=== PATIENT | male | born 1970 | race Caucasian/White ===

== ENCOUNTER → 2018-12-19 | Outpatient (REF) ==
[~2018-12-19] MED LIST: ADVIL200 MG PO; ALEVE220 MG PO; ASPIRIN 81M81 MG/TA2 PO; LACRI-LUBE1 OI1 OD; LANTUS100 U/ML SC; NO HOME MEDICATIONS; PREDNISONE20 MG PO; SEPTRA DS 8001 TAB PO
== END ==
LOC: ZLAB.WCH 11:07
DX: Z01.89 Encounter for other specified special examinations (principal)

== ENCOUNTER → 2019-02-12 | Outpatient (REF) | LOC: ZLAB.WCH 14:52 | DX: Z01.89 Encounter for other specified special examinations (principal) ==

== ENCOUNTER 2020-07-17 21:08 | Emergency (ER) | payer MEDICAID ==
[~2020-07-17] VITALS: Ht 172.7 cm; Wt 125.0 kg
[2020-07-17 23:29] LABS: BASO # 0.1 (0.0-0.2); BASO % 0.3 % (0.0-2.0); EOS # 0.1 (0.0-0.7); EOS % 0.9 % (0-4.0); GRAN # 11.3 (1.4-6.5); GRAN % 76.4 % (42.2-75.2); HEMOGLOBIN 12.5 g/dl (13.5-18.0); LYMPH # 2.1 (1.2-3.4); MEAN CELL VOLUME 92 fl (80.0-100.0); MEAN CORPUSCULAR HEMOGLOBIN 31 pg (27.0-31.0); MEAN CORPUSCULAR HGB CONC 34 g/dl (33.0-37.0); MEAN PLATELET VOLUME 9.9 fl (7.4-10.4); MONO # 1.1 (0.1-0.6); MONO % 7.7 % (1.7-9.3); PLATELET COUNT 279 K/mm3 (130-400); REDCELL DISTRIBUTION WIDTH-CV 13.8 % (11.5-14.5)
[2020-07-17 23:30] LABS: HEMATOCRIT 36.9 % (42.0-52.0)
[2020-07-17 23:44] LABS: PROTHROMBIN TIME 11.3 SECONDS (9.7-12.8)
[2020-07-18 00:20] LABS: ALBUMIN 3.7 gm/dL (3.5-5.0); BILIRUBIN,TOTAL 0.7 mg/dL (0.0-1.0); CALCIUM 8.7 mg/dL (8.4-10.2); CREATININE, serum 1.13 (0.66-1.25); TOTAL PROTEIN 7.1 gm/dL (6.4-8.2)
[2020-07-18 01:34] LABS: COLLECTION METHOD CLEAN CATCH
[2020-07-18 01:45] LABS: MUCOUS Present /lpf; PH 5 (5-8); SQUAMOUS EPITHELIAL 0-2 /hpf; URINE APPEARANCE Hazy; URINE BACTERIA Rare /hpf; URINE BILIRUBIN Negative (NEGATIVE); URINE BLOOD 2+ (NEGATIVE); URINE COLOR Yellow; URINE GLUCOSE 3+ (NEGATIVE); URINE KETONE Trace (NEGATIVE); URINE LEUKOCYTE ESTERASE Trace (NEGATIVE); URINE NITRATE Negative (NEGATIVE); URINE PROTEIN(semi-quant) 2+ (NEGATIVE); URINE RBC 20-50 /hpf; URINE UROBILINOGEN Negative (NEGATIVE)
[2020-07-18] MEDS ORDERED: BACTRIM DS 8001 TAB PO ×2 (02:13→02:46)
[2020-07-18 02:21] LABS: POTASSIUM 6.2 mmol/L (3.4-5.0)
[2020-07-18 02:38] VITALS: BP 159/87; PULSE 89
== END 2020-07-18 02:50 | disposition home or self-care (01) ==
LOC: COL.ER 21:08
PROVIDERS: Emergency Medicine; Family Medicine
DX: N39.0 Urinary tract infection, site not specified (principal); R42 Dizziness and giddiness; E86.0 Dehydration; E11.9 Type 2 diabetes mellitus without complications; Z79.52 Long term (current) use of systemic steroids; Z79.82 Long term (current) use of aspirin; Z79.4 Long term (current) use of insulin
CPT/HCPCS: J0696

== ENCOUNTER 2021-03-20 10:47 | Emergency (ER) | payer MEDICAID ==
[~2021-03-20] VITALS: Ht 172.7 cm; Wt 104.5 kg
[~2021-03-20 10:47] MED LIST changes: +BACTRIM DS 8001 TAB PO
[2021-03-20 11:04] VITALS: TEMP 97.6
[2021-03-20] MEDS ORDERED: CEPHALEXIN500 M1 PO (13:01)
[2021-03-20 13:09] VITALS: BP 168/80; PULSE 83
[2021-04-20] MEDS ORDERED: ALEVE 220MG220 MG PO (08:55)
[2021-04-21] MEDS ORDERED: NOVOLOG FLEX100 U/ML SQ (13:51)
[2021-04-21] MEDS ORDERED: TRULICITY1.5 MG/0.5 SQ (13:52)
[2021-04-21] MEDS ORDERED: PLAVIX 75MG TAB75 MG PO (13:52)
[2021-04-21] MEDS ORDERED: PRINIVIL10 MG PO (13:54)
[2021-04-21] MEDS ORDERED: NEURONTIN600 MG/TAB PO (13:54)
[2021-04-21] MEDS ORDERED: CRESTOR 10MG10 MG PO (13:56)
[2021-04-21] MEDS ORDERED: ERGOCALCIFER50000 IU PO (13:56)
[2021-04-21] MEDS ORDERED: PRISTIQ 50 MG T50 MG PO (13:57)
[2021-04-21] MEDS ORDERED: XYZAL5 MG PO (13:59)
[2021-04-21] MEDS ORDERED: NATURAL IRON65 MG PO (14:00)
[2021-05-03] MEDS ORDERED: PROBIOTIC BLEN1 EACH PO (10:51)
[2021-05-03] MEDS ORDERED: BENTYL 10MG10 MG/CAP PO (11:21)
[2021-06-08] MEDS ORDERED: [UNRECOGNIZED DRUG - REMARK] PO (09:42)
[2021-06-11] MEDS ORDERED: VANCOCIN H125 MG/CAP PO (10:14)
== END 2021-03-20 13:10 | disposition home or self-care (01) ==
LOC: COL.ER 10:47
DX: S90.31XA Contusion of right foot, initial encounter (principal); S61.210A Laceration without foreign body of right index finger without damage to nail, initial encounter; V03.90XA Pedestrian on foot injured in collision with car, pick-up truck or van, unspecified whether traffic or nontraffic accident, initial encounter; W26.0XXA Contact with knife, initial encounter

== ENCOUNTER → 2021-04-02 | Outpatient (CLI) | payer MEDICAID ==
[~2021-04-02] MED LIST changes: +ALEVE 220MG220 MG PO; +BENTYL 10MG10 MG/CAP PO; +CEPHALEXIN500 M1 PO; +COLESTID 1GM1 G PO; +CRESTOR 10MG10 MG PO; +ERGOCALCIFER50000 IU PO; +NATURAL IRON65 MG PO; +NATURAL POTASS595 MG PO; +NEURONTIN600 MG/TAB PO; +NOVOLOG FLEX100 U/ML SQ; +PLAVIX 75MG TAB75 MG PO; +PRINIVIL10 MG PO; +PRISTIQ 50 MG T50 MG PO; +PROBIOTIC BLEN1 EACH PO; +TRULICITY1.5 MG/0.5 SQ; +VANCOCIN H125 MG/CAP PO; +VERAPAMIL120 MG/TA1 PO; +XYZAL5 MG PO; +[UNRECOGNIZED DRUG - REMARK] PO
== END ==
LOC: COL.RAD 08:00
DX: K58.0 Irritable bowel syndrome with diarrhea (principal); E11.9 Type 2 diabetes mellitus without complications
CPT/HCPCS: A9541

== ENCOUNTER 2021-04-20 12:48 | Emergency (ER) | payer MEDICAID ==
[~2021-04-20] VITALS: Ht 172.7 cm; Wt 100.0 kg
[~2021-04-20 12:48] MED LIST changes: -BENTYL 10MG10 MG/CAP PO; -COLESTID 1GM1 G PO; -CRESTOR 10MG10 MG PO; -ERGOCALCIFER50000 IU PO; -NATURAL IRON65 MG PO; -NATURAL POTASS595 MG PO; -NEURONTIN600 MG/TAB PO; -NOVOLOG FLEX100 U/ML SQ; -PLAVIX 75MG TAB75 MG PO; -PRINIVIL10 MG PO; -PRISTIQ 50 MG T50 MG PO; -PROBIOTIC BLEN1 EACH PO; -TRULICITY1.5 MG/0.5 SQ; -VANCOCIN H125 MG/CAP PO; -VERAPAMIL120 MG/TA1 PO; -XYZAL5 MG PO; -[UNRECOGNIZED DRUG - REMARK] PO
[2021-04-20 12:57] VITALS: TEMP 97.9
[2021-04-20 13:39] LABS: BASO % 0.3 % (0.0-2.0); EOS # 0.2 (0.0-0.7); EOS % 1.7 % (0-4.0); GRAN # 6.6 (1.4-6.5); HEMOGLOBIN 10.2 g/dl (13.5-18.0); LYMPH # 2.5 (1.2-3.4); LYMPH % 24.1 % (20.0-51.0); MEAN CELL VOLUME 94 fl (80.0-100.0); MEAN CORPUSCULAR HEMOGLOBIN 32 pg (27.0-31.0); MEAN CORPUSCULAR HGB CONC 34 g/dl (33.0-37.0); MEAN PLATELET VOLUME 8.8 fl (7.4-10.4); MONO # 0.9 (0.1-0.6); MONO % 8.6 % (1.7-9.3); PLATELET COUNT 232 K/mm3 (130-400); RED BLOOD COUNT 3.19 M/mm3 (4.20-5.60); REDCELL DISTRIBUTION WIDTH-CV 12.7 % (11.5-14.5)
[2021-04-20 13:46] LABS: ALANINE AMINOTRANSFERASE 12 U/L (4-49); ALBUMIN 3.7 gm/dL (3.5-5.0); ALKALINE PHOSPHATASE 101 U/L (50-136); ANION GAP 6 mmol/L (7-16); AST,SGOT 23 U/L (15-37); BILIRUBIN,TOTAL < 0.1 mg/dL (0.0-1.0); BLOOD UREA NITROGEN 41 mg/dL (9-20); CALCIUM 9.1 mg/dL (8.4-10.2); CARBON DIOXIDE 24 mmol/L (22-30); CHLORIDE 109 mmol/L (98-107); GLUCOSE 88 mg/dL (74-106); POTASSIUM 4.9 mmol/L (3.4-5.0); SODIUM 138 mmol/L (137-145); TOTAL PROTEIN 7.3 gm/dL (6.4-8.2)
[2021-04-20 13:51] LABS: ACETONE,SERUM NEGATIVE
[2021-04-20 15:51] VITALS: BP 169/92; PULSE 82
[2021-04-21] MEDS ORDERED: NOVOLOG FLEX100 U/ML SQ (13:51)
[2021-04-21] MEDS ORDERED: TRULICITY1.5 MG/0.5 SQ (13:52)
[2021-04-21] MEDS ORDERED: PLAVIX 75MG TAB75 MG PO (13:52)
[2021-04-21] MEDS ORDERED: NEURONTIN600 MG/TAB PO (13:54)
[2021-04-21] MEDS ORDERED: PRINIVIL10 MG PO (13:54)
[2021-04-21] MEDS ORDERED: CRESTOR 10MG10 MG PO (13:56)
[2021-04-21] MEDS ORDERED: ERGOCALCIFER50000 IU PO (13:56)
[2021-04-21] MEDS ORDERED: PRISTIQ 50 MG T50 MG PO (13:57)
[2021-04-21] MEDS ORDERED: XYZAL5 MG PO (13:59)
[2021-04-21] MEDS ORDERED: NATURAL IRON65 MG PO (14:00)
[2021-05-03] MEDS ORDERED: PROBIOTIC BLEN1 EACH PO (10:51)
[2021-05-03] MEDS ORDERED: BENTYL 10MG10 MG/CAP PO (11:21)
[2021-06-08] MEDS ORDERED: [UNRECOGNIZED DRUG - REMARK] PO (09:42)
[2021-06-11] MEDS ORDERED: VANCOCIN H125 MG/CAP PO (10:14)
== END 2021-04-20 16:15 | disposition home or self-care (01) ==
LOC: COL.ER 12:48
PROVIDERS: Nurse Practitioner
DX: N17.9 Acute kidney failure, unspecified (principal); S90.31XA Contusion of right foot, initial encounter; E11.65 Type 2 diabetes mellitus with hyperglycemia; N28.9 Disorder of kidney and ureter, unspecified; E87.5 Hyperkalemia; Z89.512 Acquired absence of left leg below knee; Z79.4 Long term (current) use of insulin; X58.XXXA Exposure to other specified factors, initial encounter
CPT/HCPCS: J7030

== ENCOUNTER → 2021-05-31 | Outpatient (CLI) | payer MEDICAID ==
[~2021-05-31] MED LIST changes: +BENTYL 10MG10 MG/CAP PO; +COLESTID 1GM1 G PO; +CRESTOR 10MG10 MG PO; +ERGOCALCIFER50000 IU PO; +NATURAL IRON65 MG PO; +NATURAL POTASS595 MG PO; +NEURONTIN600 MG/TAB PO; +NOVOLOG FLEX100 U/ML SQ; +PLAVIX 75MG TAB75 MG PO; +PRINIVIL10 MG PO; +PRISTIQ 50 MG T50 MG PO; +PROBIOTIC BLEN1 EACH PO; +TRULICITY1.5 MG/0.5 SQ; +VANCOCIN H125 MG/CAP PO; +VERAPAMIL120 MG/TA1 PO; +XYZAL5 MG PO; +[UNRECOGNIZED DRUG - REMARK] PO
== END ==
LOC: ZCOL.LAB 11:14
DX: E13.621 Other specified diabetes mellitus with foot ulcer (principal)

== ENCOUNTER 2021-06-14 09:30 | Outpatient (RCR) | payer MEDICAID ==
[2021-04-20 08:46] LABS: BASO % 0.3 % (0.0-2.0); EOS # 0.2 (0.0-0.7); EOS % 2.3 % (0-4.0); GRAN # 5.4 (1.4-6.5); GRAN % 62.2 % (42.2-75.2); LYMPH # 2.3 (1.2-3.4); LYMPH % 27.1 % (20.0-51.0); MEAN CELL VOLUME 93 fl (80.0-100.0); MEAN CORPUSCULAR HGB CONC 34 g/dl (33.0-37.0); MEAN PLATELET VOLUME 8.8 fl (7.4-10.4); MONO # 0.7 (0.1-0.6); MONO % 7.8 % (1.7-9.3); PLATELET COUNT 223 K/mm3 (130-400); RED BLOOD COUNT 3.02 M/mm3 (4.20-5.60); REDCELL DISTRIBUTION WIDTH-CV 12.8 % (11.5-14.5)
[2021-04-20 08:47] LABS: HEMATOCRIT 28.2 % (42.0-52.0); HEMOGLOBIN 9.5 g/dl (13.5-18.0); MEAN CORPUSCULAR HEMOGLOBIN 31 pg (27.0-31.0)
[2021-04-20 09:00] LABS: ALBUMIN 3.3 gm/dL (3.5-5.0); BILIRUBIN,TOTAL 0.1 mg/dL (0.0-1.0); C-REACTIVE PROTEIN 2.8 mg/dL (0.0-0.9); CALCIUM 8.3 mg/dL (8.4-10.2); CREATININE, serum 1.66 (0.66-1.25); POTASSIUM 5.4 mmol/L (3.4-5.0); TOTAL PROTEIN 6.5 gm/dL (6.4-8.2)
[2021-04-20 09:20] VITALS: BP 169/95; PULSE 91; TEMP 97.8
[2021-04-20 09:21] LABS: ERYTHROCYTE SEDIMENTATION RATE 113 mm/hr (0-15)
--- NOTE | 2021-04-21 10:39 | NUR ---
Pt has been a no-show so far today, i did call and leave 3 voicemail messages. I advised pt to go to ER is possible today to receive his antibiotics, and to plan on arriving at 0830 tommnrow for same. I spoke with plaster pattern caster to advise her of pt's possible arrival today. I also called Jenae Olmos, to advise her the pt was a no-show. She advised that if pt does not come today and was also a no-show tommorow, that we should call for a welfare check on him.
[2021-04-21 14:11] VITALS: BP 176/82; PULSE 91; TEMP 98.1
[2021-04-22 08:59] VITALS: BP 168/82; PULSE 81; TEMP 98.5
[2021-04-23 09:04] VITALS: BP 163/86; PULSE 84; TEMP 98.2
[2021-04-24 08:38] VITALS: BP 161/91; PULSE 91; TEMP 98.2
[2021-04-24 09:26] LABS: BASO % 0.4 % (0.0-2.0); EOS # 0.7 (0.0-0.7); EOS % 7.2 % (0-4.0); GRAN # 6.2 (1.4-6.5); HEMOGLOBIN 10.1 g/dl (13.5-18.0); LYMPH # 2.4 (1.2-3.4); LYMPH % 23.9 % (20.0-51.0); MEAN CELL VOLUME 95 fl (80.0-100.0); MEAN CORPUSCULAR HEMOGLOBIN 33 pg (27.0-31.0); MEAN CORPUSCULAR HGB CONC 34 g/dl (33.0-37.0); MONO # 0.7 (0.1-0.6); MONO % 7.1 % (1.7-9.3); PLATELET COUNT 258 K/mm3 (130-400); RED BLOOD COUNT 3.11 M/mm3 (4.20-5.60); REDCELL DISTRIBUTION WIDTH-CV 12.9 % (11.5-14.5)
[2021-04-24 09:36] LABS: HEMATOCRIT 29.5 % (42.0-52.0)
[2021-04-24 09:39] LABS: ALBUMIN 3.4 gm/dL (3.5-5.0); BILIRUBIN,TOTAL 0.1 mg/dL (0.0-1.0); C-REACTIVE PROTEIN 2.4 mg/dL (0.0-0.9); CALCIUM 8.7 mg/dL (8.4-10.2); CREATININE, serum 1.2 (0.66-1.25); POTASSIUM 5.1 mmol/L (3.4-5.0); TOTAL PROTEIN 6.9 gm/dL (6.4-8.2)
[2021-04-24 09:58] LABS: ERYTHROCYTE SEDIMENTATION RATE > 140 mm/hr (0-15)
[2021-04-26 09:27] VITALS: BP 153/95; PULSE 81; TEMP 98.4
[2021-04-27 10:13] VITALS: BP 161/92; PULSE 91; TEMP 98
[2021-04-28 08:43] VITALS: BP 169/92; PULSE 90; TEMP 99
[2021-04-29 08:34] VITALS: BP 163/75; PULSE 88; TEMP 99.2
[2021-04-30 10:59] VITALS: BP 148/88; PULSE 84; TEMP 99.2
[2021-04-30 11:14] LABS: BASO % 0.3 % (0.0-2.0); EOS # 0.2 (0.0-0.7); EOS % 1.8 % (0-4.0); GRAN # 9.4 (1.4-6.5); GRAN % 74.6 % (42.2-75.2); HEMOGLOBIN 10.1 g/dl (13.5-18.0); LYMPH # 1.9 (1.2-3.4); LYMPH % 15.4 % (20.0-51.0); MEAN CELL VOLUME 94 fl (80.0-100.0); MEAN CORPUSCULAR HEMOGLOBIN 31 pg (27.0-31.0); MEAN CORPUSCULAR HGB CONC 33 g/dl (33.0-37.0); MONO # 0.9 (0.1-0.6); MONO % 7.4 % (1.7-9.3); PLATELET COUNT 243 K/mm3 (130-400); RED BLOOD COUNT 3.26 M/mm3 (4.20-5.60); REDCELL DISTRIBUTION WIDTH-CV 12.8 % (11.5-14.5)
[2021-04-30 11:15] LABS: HEMATOCRIT 30.5 % (42.0-52.0)
[2021-04-30 11:23] LABS: ALBUMIN 3.6 gm/dL (3.5-5.0); BILIRUBIN,TOTAL 0.4 mg/dL (0.0-1.0); CALCIUM 9.1 mg/dL (8.4-10.2); CREATININE, serum 1.44 (0.66-1.25); POTASSIUM 4.9 mmol/L (3.4-5.0); TOTAL PROTEIN 7.3 gm/dL (6.4-8.2)
[2021-04-30 11:43] LABS: ERYTHROCYTE SEDIMENTATION RATE > 140 mm/hr (0-15)
[2021-04-30 11:54] LABS: C-REACTIVE PROTEIN 32.7 mg/dL (0.0-0.9)
[2021-05-01 10:38] VITALS: BP 160/100; PULSE 88; TEMP 97.4
[2021-05-02 09:58] VITALS: BP 148/86; PULSE 85; TEMP 97.9
[2021-05-03 10:45] VITALS: BP 175/95; PULSE 88; TEMP 98.1
[2021-05-04 10:29] VITALS: BP 194/101; PULSE 87; TEMP 97.3
[2021-05-05 09:46] VITALS: BP 179/97; PULSE 85; TEMP 98.1
[2021-05-06 08:20] VITALS: BP 188/102; PULSE 79; TEMP 98
[2021-05-07 09:57] VITALS: BP 172/91; PULSE 72; TEMP 98.5
[2021-05-07 10:18] LABS: BASO # 0.1 (0.0-0.2); BASO % 0.7 % (0.0-2.0); EOS # 0.5 (0.0-0.7); EOS % 4.3 % (0-4.0); GRAN # 6.4 (1.4-6.5); GRAN % 60.6 % (42.2-75.2); LYMPH # 2.9 (1.2-3.4); LYMPH % 27.3 % (20.0-51.0); MEAN CELL VOLUME 92 fl (80.0-100.0); MEAN CORPUSCULAR HGB CONC 34 g/dl (33.0-37.0); MONO # 0.7 (0.1-0.6); MONO % 6.2 % (1.7-9.3); PLATELET COUNT 321 K/mm3 (130-400); RED BLOOD COUNT 3.17 M/mm3 (4.20-5.60); REDCELL DISTRIBUTION WIDTH-CV 12.8 % (11.5-14.5)
[2021-05-07 10:19] LABS: HEMATOCRIT 29.1 % (42.0-52.0); HEMOGLOBIN 9.8 g/dl (13.5-18.0); MEAN CORPUSCULAR HEMOGLOBIN 31 pg (27.0-31.0)
[2021-05-07 10:32] LABS: ALANINE AMINOTRANSFERASE 21 U/L (4-49); ALBUMIN 3.4 gm/dL (3.5-5.0); ALKALINE PHOSPHATASE 112 U/L (50-136); ANION GAP 5 mmol/L (7-16); AST,SGOT 26 U/L (15-37); BILIRUBIN,TOTAL < 0.1 mg/dL (0.0-1.0); BLOOD UREA NITROGEN 22 mg/dL (9-20); CARBON DIOXIDE 26 mmol/L (22-30); CHLORIDE 109 mmol/L (98-107); CREATINE KINASE 38 U/L (55-170); CREATININE, serum 1.13 (0.66-1.25); GLUCOSE 199 mg/dL (74-106); POTASSIUM 5.1 mmol/L (3.4-5.0); SODIUM 139 mmol/L (137-145); TOTAL PROTEIN 7.4 gm/dL (6.4-8.2)
[2021-05-07 10:42] LABS: ERYTHROCYTE SEDIMENTATION RATE > 140 mm/hr (0-15)
[2021-05-08 10:19] VITALS: BP 166/86; PULSE 79
[2021-05-09 11:18] VITALS: BP 178/93; PULSE 81; TEMP 97.8
[2021-05-10 10:29] VITALS: BP 194/94; PULSE 81; TEMP 98.2
[2021-05-11 12:22] VITALS: BP 164/84; PULSE 81; TEMP 98.8
[2021-05-12 09:12] VITALS: BP 187/91; PULSE 90; TEMP 98.4
[2021-05-13 09:53] VITALS: BP 161/96; PULSE 80; TEMP 98.6
[2021-05-14 10:43] VITALS: BP 184/104; PULSE 95; TEMP 98.4
[2021-05-14 10:54] LABS: BASO % 0.3 % (0.0-2.0); EOS # 0.2 (0.0-0.7); EOS % 2.2 % (0-4.0); GRAN # 6.3 (1.4-6.5); GRAN % 66.9 % (42.2-75.2); LYMPH # 2.3 (1.2-3.4); LYMPH % 23.8 % (20.0-51.0); MEAN CELL VOLUME 93 fl (80.0-100.0); MEAN CORPUSCULAR HGB CONC 33 g/dl (33.0-37.0); MONO # 0.6 (0.1-0.6); MONO % 6.5 % (1.7-9.3); PLATELET COUNT 332 K/mm3 (130-400); RED BLOOD COUNT 3.13 M/mm3 (4.20-5.60); REDCELL DISTRIBUTION WIDTH-CV 13.2 % (11.5-14.5)
[2021-05-14 10:56] LABS: HEMATOCRIT 29.2 % (42.0-52.0); HEMOGLOBIN 9.7 g/dl (13.5-18.0); MEAN CORPUSCULAR HEMOGLOBIN 31 pg (27.0-31.0)
[2021-05-14 11:06] LABS: ALBUMIN 3.6 gm/dL (3.5-5.0); BILIRUBIN,TOTAL 0.2 mg/dL (0.0-1.0); CALCIUM 8.9 mg/dL (8.4-10.2); CREATININE, serum 1.16 (0.66-1.25); POTASSIUM 4.4 mmol/L (3.4-5.0); TOTAL PROTEIN 7.2 gm/dL (6.4-8.2)
[2021-05-14 11:34] LABS: ERYTHROCYTE SEDIMENTATION RATE > 140 mm/hr (0-15)
[2021-05-15 09:00] VITALS: BP 161/88; PULSE 93; TEMP 98.7
[2021-05-16 09:30] VITALS: BP 144/103; PULSE 99; TEMP 98.3
[2021-05-17 09:55] VITALS: BP 179/108; PULSE 91; TEMP 98.5
[2021-05-18 10:00] VITALS: BP 146/91; PULSE 67; TEMP 99.2
[2021-05-19 09:32] VITALS: BP 166/101; PULSE 87; TEMP 99.2
[2021-05-20 08:40] VITALS: BP 165/98; PULSE 100; TEMP 98
[2021-05-21 09:24] VITALS: BP 179/97; PULSE 100; TEMP 98.7
[2021-05-21 09:32] LABS: BASO % 0.3 % (0.0-2.0); EOS # 0.3 (0.0-0.7); EOS % 3.1 % (0-4.0); GRAN # 7.1 (1.4-6.5); GRAN % 68.7 % (42.2-75.2); LYMPH # 2.1 (1.2-3.4); LYMPH % 20.5 % (20.0-51.0); MEAN CELL VOLUME 92 fl (80.0-100.0); MEAN CORPUSCULAR HGB CONC 33 g/dl (33.0-37.0); MEAN PLATELET VOLUME 9.2 fl (7.4-10.4); MONO # 0.7 (0.1-0.6); MONO % 7.1 % (1.7-9.3); PLATELET COUNT 293 K/mm3 (130-400); REDCELL DISTRIBUTION WIDTH-CV 13.1 % (11.5-14.5)
[2021-05-21 09:33] LABS: HEMATOCRIT 30.5 % (42.0-52.0); HEMOGLOBIN 9.9 g/dl (13.5-18.0); MEAN CORPUSCULAR HEMOGLOBIN 30 pg (27.0-31.0)
[2021-05-21 09:46] LABS: ALBUMIN 3.6 gm/dL (3.5-5.0); BILIRUBIN,TOTAL 0.3 mg/dL (0.0-1.0); CALCIUM 8.9 mg/dL (8.4-10.2); CREATININE, serum 1.24 (0.66-1.25); POTASSIUM 5.2 mmol/L (3.4-5.0); TOTAL PROTEIN 7.5 gm/dL (6.4-8.2)
[2021-05-21 09:53] LABS: ERYTHROCYTE SEDIMENTATION RATE > 140 mm/hr (0-15)
[2021-05-21 10:00] LABS: C-REACTIVE PROTEIN 16.6 mg/dL (0.0-0.9)
[2021-05-22 09:43] VITALS: BP 178/131; PULSE 60; TEMP 98.6
[2021-05-23 09:45] VITALS: BP 158/91; PULSE 98; TEMP 98.2
[2021-05-24 09:51] VITALS: BP 199/94; PULSE 91; TEMP 97.4
[2021-05-25 09:01] VITALS: BP 171/104; PULSE 87; TEMP 98.6
[2021-05-26 10:16] VITALS: BP 102/69; PULSE 75; TEMP 99.1
[2021-05-27 09:54] VITALS: BP 158/85; PULSE 100; TEMP 98.3
[2021-05-28 09:39] VITALS: BP 149/92; PULSE 95; TEMP 98.2
[2021-05-28 09:48] LABS: MEAN CELL VOLUME 93 fl (80.0-100.0); MEAN CORPUSCULAR HGB CONC 32 g/dl (33.0-37.0); MEAN PLATELET VOLUME 8.9 fl (7.4-10.4); PLATELET COUNT 336 K/mm3 (130-400); RED BLOOD COUNT 3.22 M/mm3 (4.20-5.60); REDCELL DISTRIBUTION WIDTH-CV 13.2 % (11.5-14.5)
[2021-05-28 09:52] LABS: HEMATOCRIT 29.9 % (42.0-52.0); HEMOGLOBIN 9.7 g/dl (13.5-18.0); MEAN CORPUSCULAR HEMOGLOBIN 30 pg (27.0-31.0)
[2021-05-28 09:58] LABS: ALBUMIN 3.5 gm/dL (3.5-5.0); BILIRUBIN,TOTAL 0.1 mg/dL (0.0-1.0); CREATININE, serum 1.23 (0.66-1.25); POTASSIUM 4.8 mmol/L (3.4-5.0); TOTAL PROTEIN 7.5 gm/dL (6.4-8.2)
[2021-05-28 10:28] LABS: ERYTHROCYTE SEDIMENTATION RATE > 140 mm/hr (0-15)
[2021-05-29 09:16] VITALS: BP 122/83; PULSE 110; TEMP 98.8
[2021-05-30 09:49] VITALS: BP 157/92; PULSE 105; TEMP 98.8
[2021-05-31 09:21] VITALS: BP 170/94; PULSE 99; TEMP 97.9
[2021-06-01 11:30] VITALS: BP 184/97; PULSE 96; TEMP 97.9
[2021-06-02 09:41] VITALS: BP 179/81; PULSE 80; TEMP 98
[2021-06-03 11:48] LABS: CLOSTRIDIUM DIFF A/B NEG; CLOSTRIDIUM DIFF A/B INTERP NonToxigenic C.diff
[2021-06-04 09:46] VITALS: BP 161/94; PULSE 104; TEMP 98.2
[2021-06-04 09:56] LABS: BASO # 0.1 (0.0-0.2); BASO % 0.5 % (0.0-2.0); EOS # 0.2 (0.0-0.7); EOS % 2.2 % (0-4.0); GRAN # 5.3 (1.4-6.5); GRAN % 57.5 % (42.2-75.2); HEMOGLOBIN 10.1 g/dl (13.5-18.0); LYMPH # 3.2 (1.2-3.4); LYMPH % 34.7 % (20.0-51.0); MEAN CELL VOLUME 93 fl (80.0-100.0); MEAN CORPUSCULAR HEMOGLOBIN 30 pg (27.0-31.0); MEAN CORPUSCULAR HGB CONC 33 g/dl (33.0-37.0); MEAN PLATELET VOLUME 8.8 fl (7.4-10.4); MONO # 0.4 (0.1-0.6); MONO % 4.7 % (1.7-9.3); PLATELET COUNT 336 K/mm3 (130-400); RED BLOOD COUNT 3.36 M/mm3 (4.20-5.60); REDCELL DISTRIBUTION WIDTH-CV 14.1 % (11.5-14.5)
[2021-06-04 09:58] LABS: HEMATOCRIT 31.1 % (42.0-52.0)
[2021-06-04 10:14] LABS: ALANINE AMINOTRANSFERASE 19 U/L (4-49); ALBUMIN 3.5 gm/dL (3.5-5.0); ALKALINE PHOSPHATASE 106 U/L (50-136); ANION GAP 9 mmol/L (7-16); AST,SGOT 28 U/L (15-37); BILIRUBIN,TOTAL < 0.1 mg/dL (0.0-1.0); BLOOD UREA NITROGEN 26 mg/dL (9-20); C-REACTIVE PROTEIN 1.7 mg/dL (0.0-0.9); CALCIUM 8.5 mg/dL (8.4-10.2); CARBON DIOXIDE 21 mmol/L (22-30); CHLORIDE 108 mmol/L (98-107); CREATINE KINASE 54 U/L (55-170); CREATININE, serum 1.28 (0.66-1.25); GLUCOSE 241 mg/dL (74-106); POTASSIUM 4.6 mmol/L (3.4-5.0); SODIUM 138 mmol/L (137-145); TOTAL PROTEIN 7.3 gm/dL (6.4-8.2)
[2021-06-04 10:28] LABS: ERYTHROCYTE SEDIMENTATION RATE > 140 mm/hr (0-15)
[2021-06-05 09:47] VITALS: BP 185/104; PULSE 101; TEMP 98
[2021-06-06 09:44] VITALS: BP 162/82; PULSE 90; TEMP 98.6
[2021-06-07 10:07] VITALS: BP 183/90; PULSE 95; TEMP 98.3
[2021-06-08 09:23] VITALS: BP 162/83; PULSE 95; TEMP 98
[2021-06-09 09:16] VITALS: BP 177/102; PULSE 99; TEMP 97.9
[2021-06-10 08:59] VITALS: BP 183/114; PULSE 99; TEMP 97.5
[2021-06-11 10:27] VITALS: BP 175/106; PULSE 105; TEMP 98.3
[2021-06-11 11:24] LABS: BASO % 0.6 % (0.0-2.0); EOS # 0.3 (0.0-0.7); EOS % 3.6 % (0-4.0); GRAN # 3.7 (1.4-6.5); GRAN % 51.3 % (42.2-75.2); LYMPH # 2.7 (1.2-3.4); LYMPH % 37.8 % (20.0-51.0); MEAN CELL VOLUME 92 fl (80.0-100.0); MEAN CORPUSCULAR HGB CONC 33 g/dl (33.0-37.0); MEAN PLATELET VOLUME 9.5 fl (7.4-10.4); MONO # 0.5 (0.1-0.6); MONO % 6.3 % (1.7-9.3); PLATELET COUNT 249 K/mm3 (130-400); RED BLOOD COUNT 3.22 M/mm3 (4.20-5.60); REDCELL DISTRIBUTION WIDTH-CV 14.8 % (11.5-14.5)
[2021-06-11 11:25] LABS: HEMATOCRIT 29.5 % (42.0-52.0); HEMOGLOBIN 9.7 g/dl (13.5-18.0); MEAN CORPUSCULAR HEMOGLOBIN 30 pg (27.0-31.0)
[2021-06-11 11:46] LABS: ALANINE AMINOTRANSFERASE 24 U/L (4-49); ALBUMIN 3.5 gm/dL (3.5-5.0); ALKALINE PHOSPHATASE 94 U/L (50-136); ANION GAP 7 mmol/L (7-16); AST,SGOT 32 U/L (15-37); BILIRUBIN,TOTAL < 0.1 mg/dL (0.0-1.0); BLOOD UREA NITROGEN 38 mg/dL (9-20); C-REACTIVE PROTEIN 0.8 mg/dL (0.0-0.9); CALCIUM 8.6 mg/dL (8.4-10.2); CARBON DIOXIDE 21 mmol/L (22-30); CHLORIDE 111 mmol/L (98-107); CREATINE KINASE 44 U/L (55-170); CREATININE, serum 1.39 (0.66-1.25); GLUCOSE 151 mg/dL (74-106); POTASSIUM 5.7 mmol/L (3.4-5.0); SODIUM 138 mmol/L (137-145); TOTAL PROTEIN 7.1 gm/dL (6.4-8.2)
[2021-06-11 11:52] LABS: ERYTHROCYTE SEDIMENTATION RATE 70 mm/hr (0-15)
[2021-06-12 09:47] VITALS: BP 150/89; PULSE 100; TEMP 98
[2021-06-13 09:30] VITALS: BP 160/80; PULSE 98; TEMP 98
[~2021-06-14] VITALS: Ht 172.7 cm; Wt 104.6 kg
[2021-06-14 09:16] VITALS: BP 168/91; PULSE 98; TEMP 96.8
[~2021-06-14 09:30] MED LIST changes: -COLESTID 1GM1 G PO; -NATURAL POTASS595 MG PO; -VERAPAMIL120 MG/TA1 PO
--- NOTE | 2021-06-14 10:36 | NUR ---
Pt assisted out by wheelchair following PICC removal and 30 min flat time. Dressing remains in place, clean, dry and intact.
== END 2021-06-14 14:23 | disposition still patient (30) ==
LOC: EUO 09:30
PROVIDERS: Internal Medicine Infectious Disease; Nurse Practitioner
DX: E13.621 Other specified diabetes mellitus with foot ulcer (principal); Z79.899 Other long term (current) drug therapy
CPT/HCPCS: C1751; J0878; J1335

== ENCOUNTER 2021-06-26 20:24 | Inpatient (IN) | payer MEDICARE, MEDICAID ==
[~2021-06-26] VITALS: Ht 170.2 cm; Wt 108.0 kg
[2021-06-26 21:46] LABS: ALBUMIN 3.5 gm/dL (3.5-5.0); BILIRUBIN,TOTAL 0.4 mg/dL (0.0-1.0); CALCIUM 8.5 mg/dL (8.4-10.2); CREATININE, serum 1.5 (0.66-1.25); POTASSIUM 4.9 mmol/L (3.4-5.0); TOTAL PROTEIN 7.1 gm/dL (6.4-8.2)
[2021-06-26 21:57] LABS: COLLECTION METHOD CLEAN CATCH
[2021-06-26 22:02] LABS: BASO # 0.1 (0.0-0.2); BASO % 0.4 % (0.0-2.0); EOS # 0.2 (0.0-0.7); EOS % 1.3 % (0-4.0); GRAN # 10.2 (1.4-6.5); GRAN % 83.4 % (42.2-75.2); LYMPH # 1.2 (1.2-3.4); LYMPH % 9.6 % (20.0-51.0); MEAN CELL VOLUME 89 fl (80.0-100.0); MEAN CORPUSCULAR HGB CONC 34 g/dl (33.0-37.0); MEAN PLATELET VOLUME 9.7 fl (7.4-10.4); MONO # 0.6 (0.1-0.6); MONO % 4.9 % (1.7-9.3); PLATELET COUNT 242 K/mm3 (130-400); RED BLOOD COUNT 3.03 M/mm3 (4.20-5.60)
[2021-06-26 22:03] LABS: HEMATOCRIT 27.1 % (42.0-52.0); HEMOGLOBIN 9.1 g/dl (13.5-18.0); MEAN CORPUSCULAR HEMOGLOBIN 30 pg (27.0-31.0)
[2021-06-26 22:05] LABS: MUCOUS Present /lpf; PH 5 (5-8); SQUAMOUS EPITHELIAL 0-2 /hpf; URINE APPEARANCE Clear; URINE BACTERIA Rare /hpf; URINE BILIRUBIN Negative (NEGATIVE); URINE BLOOD 2+ (NEGATIVE); URINE COLOR Yellow; URINE GLUCOSE 3+ (NEGATIVE); URINE KETONE Negative (NEGATIVE); URINE LEUKOCYTE ESTERASE Negative (NEGATIVE); URINE NITRATE Negative (NEGATIVE); URINE PROTEIN(semi-quant) 3+ (NEGATIVE); URINE RBC 0-2 /hpf; URINE UROBILINOGEN Negative (NEGATIVE)
[2021-06-26 22:30] LABS: ERYTHROCYTE SEDIMENTATION RATE > 140 mm/hr (0-15)
[2021-06-27] VITALS (7 sets, daily range): BP systolic 138–184; BP diastolic 70–95; PULSE 98–117; TEMP 98.7–101.9
--- NOTE | 2021-06-27 01:00 | NUR ---
Patient to medical room 304 at this time. He is alert and oriented with no complaints of pain. Oral temperature is currently 99.9. He wears 3 liters 02 and is satting 98%. COVID tests have come back negative and awaiting results of RVP. Comfort measures provided and call light in reach, will continue to monitor.
[2021-06-27] MEDS ORDERED: CEPHALEXIN500 M1 PO (02:02)
[2021-06-27] MEDS ORDERED: VANCOCIN H125 MG/CAP PO (02:02)
[2021-06-27] MEDS ORDERED: NATURAL POTASS595 MG PO (02:03)
--- NOTE | 2021-06-27 03:25 | NUR ---
Vancomycin Initial Dosing Pharmacy Note Ordering provider: Veronica Kaur DO Indication/duration: Sepsis x 7 days Relevant comorbidities: IDDM, HTN LABS: WBC = 12.2, SCr = 1.5 Recommendation: Will draw troughs and follow levels. Loading dose: 2 grams Maintenance dose: 1 gram every 12 hours Trough goal: 15-20 ug/mL
--- NOTE | 2021-06-27 09:15 | NUR ---
Shift assessment complete. Pt resting in bed. A&Ox4. Heart RRR. Lungs CTA. Wound to top of right foot. Denies needs at this time. Continuing to monitor.
[2021-06-27 09:21] LABS: BASO # 0.1 (0.0-0.2); BASO % 0.4 % (0.0-2.0); EOS % 0.3 % (0-4.0); GRAN # 11.5 (1.4-6.5); GRAN % 82.7 % (42.2-75.2); LYMPH # 1.5 (1.2-3.4); LYMPH % 10.8 % (20.0-51.0); MEAN CELL VOLUME 90 fl (80.0-100.0); MEAN CORPUSCULAR HGB CONC 33 g/dl (33.0-37.0); MEAN PLATELET VOLUME 9.8 fl (7.4-10.4); MONO # 0.8 (0.1-0.6); MONO % 5.4 % (1.7-9.3); PLATELET COUNT 268 K/mm3 (130-400); RED BLOOD COUNT 2.81 M/mm3 (4.20-5.60)
[2021-06-27 09:23] LABS: HEMATOCRIT 25.4 % (42.0-52.0); HEMOGLOBIN 8.4 g/dl (13.5-18.0); MEAN CORPUSCULAR HEMOGLOBIN 30 pg (27.0-31.0)
[2021-06-27 09:31] LABS: CALCIUM 8.3 mg/dL (8.4-10.2); CREATININE, serum 1.62 (0.66-1.25); POTASSIUM 4.9 mmol/L (3.4-5.0)
--- NOTE | 2021-06-27 16:16 | NUR ---
ARON met with the patient to discuss discharge plan. The patient lives in [place] with his fiance, Bee Merlos (ph#[phone]). He reports independence with ADLs and has a cane, walker, and wheelchair available, if needed. The patient's PCP is Dr. Narciso Trivedi and he receives his medications from [facility]. He reports no difficulties obtaining his meds. The patient does not have a DPOA-HC and he was not interested in completing one while here. He was interested in a form. ARON provided. The patient states that he is still legally and that his refuses to go through with the divorce. SW informed him how his would be his legal next of kin, even though they are seperated. The patient verbalized understanding. The patient plans to return home with his fiance upon discharge. He is currently requiring around 1.5 liters of oygen. SW to continue to monitor. *Discharge plan: home with fiance*
[2021-06-28 05:16] VITALS: BP 154/68; PULSE 94; TEMP 99.3
--- NOTE | 2021-06-28 07:30 | NUR ---
doing shift report, pt not on oxygen, o2 sat at 73%, placed on oxymask due to mouth breathing in sleep. o2 came up to 91% on 2.5L. pt appears to have sleep apnea and reports that he has been diagnosed but has been trying to go through insurance to get a cpap. pt c/o waking up in a panic feeling like he cant breathe with chest pain, but resolves when hes awake. explained correlation of symtpoms with sleep apnea.
[2021-06-28 07:51] VITALS: BP 153/70; PULSE 109; TEMP 99.3
--- NOTE | 2021-06-28 08:00 | NUR ---
medications given, insulin held at this time due to mri coming up. pt aox4, drowsy, vitals reviewed, call light within reach, at this time mri arrived to take pt down for imaging. tele removed. no other needs
--- NOTE | 2021-06-28 10:18 | NUR ---
PT PLEASANT, AOX4, ASSESSMENT PERFORMED, PT ABD FIRM AND BOWEL SOUNDS HYPOACTIVE, PT HAD BM IN AM, LOOSLEY SOFT FORMED BROWN. TYLENOL AND GABAPENTIN GIVEN FOR GENERALIZED PAIN. VANC HANGING, NO OTHER NEEDS
--- NOTE | 2021-06-28 10:48 | NUR ---
NOTIFIED DR. BROWN AND OSORIO ROWELL ABOUT NEED FOR CENTRAL LINE WITH TROUBLE DRAWING LABS AND ANTIBIOTIC INFUSIONS, ALSO NOTIFIED OF SLEEP APNEA DIAGNOSIS BUT LACK OF CPAP
[2021-06-28 11:37] VITALS: BP 165/86; PULSE 99; TEMP 98.1
[2021-06-28] MEDS ORDERED: COLESTID 1GM1 G PO (12:12)
[2021-06-28 12:59] LABS: BASO % 0.2 % (0.0-2.0); EOS % 0.1 % (0-4.0); GRAN # 11.3 (1.4-6.5); GRAN % 84.5 % (42.2-75.2); LYMPH # 1.3 (1.2-3.4); LYMPH % 9.9 % (20.0-51.0); MEAN CELL VOLUME 91 fl (80.0-100.0); MEAN CORPUSCULAR HGB CONC 33 g/dl (33.0-37.0); MEAN PLATELET VOLUME 9.8 fl (7.4-10.4); MONO # 0.6 (0.1-0.6); MONO % 4.6 % (1.7-9.3); PLATELET COUNT 298 K/mm3 (130-400); RED BLOOD COUNT 2.84 M/mm3 (4.20-5.60)
[2021-06-28 13:01] LABS: HEMATOCRIT 25.8 % (42.0-52.0); HEMOGLOBIN 8.5 g/dl (13.5-18.0); MEAN CORPUSCULAR HEMOGLOBIN 30 pg (27.0-31.0)
[2021-06-28 13:09] LABS: CALCIUM 8.7 mg/dL (8.4-10.2); CREATININE, serum 2.76 (0.66-1.25); POTASSIUM 4.3 mmol/L (3.4-5.0)
--- NOTE | 2021-06-28 17:27 | NUR ---
PT TAKEN DOWN FOR CENTRAL LINE PLACEMENT. REQUESTING MEDICATIONS FOR HEARTBURN. OBTAINED ONE TIME ORDER FOR TUMS FROM OSORIO ROWELL
--- NOTE | 2021-06-28 18:39 | NUR ---
PT RETURNED FROM CENTRAL LINE PLACEMENT. SITTING UP IN BED EATING DINNER. CALL YARBROUGH IN REACH. NO NEEDS AT THIS TIME
[2021-06-28 21:09] VITALS: BP 138/62; PULSE 98; TEMP 99.9
[2021-06-29] VITALS (7 sets, daily range): BP systolic 132–186; BP diastolic 61–95; PULSE 62–118; TEMP 98–99.8
--- NOTE | 2021-06-29 06:32 | NUR ---
Rested well this shift. Denies nausea. Short of breath at rest. O2@3L/NC. Received tramadol x1 for pain in right lower extremity. Central line flushes well with good blood return. Denies current needs. Call light in reach. Will monitor.
[2021-06-29 07:54] LABS: BASO % 0.3 % (0.0-2.0); EOS # 0.1 (0.0-0.7); EOS % 1.1 % (0-4.0); GRAN # 9.5 (1.4-6.5); GRAN % 80.3 % (42.2-75.2); LYMPH # 1.3 (1.2-3.4); LYMPH % 11.1 % (20.0-51.0); MEAN CELL VOLUME 95 fl (80.0-100.0); MEAN CORPUSCULAR HGB CONC 32 g/dl (33.0-37.0); MEAN PLATELET VOLUME 9.8 fl (7.4-10.4); MONO # 0.8 (0.1-0.6); MONO % 6.8 % (1.7-9.3); PLATELET COUNT 286 K/mm3 (130-400); RED BLOOD COUNT 2.42 M/mm3 (4.20-5.60); REDCELL DISTRIBUTION WIDTH-CV 15.2 % (11.5-14.5)
[2021-06-29 07:56] LABS: HEMATOCRIT 22.9 % (42.0-52.0); HEMOGLOBIN 7.4 g/dl (13.5-18.0); MEAN CORPUSCULAR HEMOGLOBIN 31 pg (27.0-31.0)
[2021-06-29 07:59] LABS: CALCIUM 8.2 mg/dL (8.4-10.2); CREATININE, serum 2.79 (0.66-1.25)
--- NOTE | 2021-06-29 09:49 | NUR ---
Assessment completed, alert/oriented, vital signs stable, no resp.difficulty noted at rest, lungs CTA/ diminished bases, still requiring 2-3 L o2 right foot wounds/ ulcers are dressed and wrapped, abd is soft and non-tender, he reports continued loose stools but that the frequency is improve, he reports 2 loose stools in over the last 12hours, heart RRR/ unable to palpate pedal pulse, his hemaglobin dropped to 7.4 and hospitalist aware, morning meds given and has had breakfast, denies other needs at this time
--- NOTE | 2021-06-29 20:45 | NUR ---
Initial shift assessment done- very pleasant, gets up to the BSC-having some soft stool- voiding well,, tele on, has o2 on at 3L/nc,, having left knee pain, and right foot pain- will give Ultram as ordered. Contact Isolation
[2021-06-30] VITALS (9 sets, daily range): BP systolic 129–181; BP diastolic 59–91; PULSE 82–88; TEMP 97.9–98.7
[2021-06-30 07:38] LABS: ALBUMIN 3.2 gm/dL (3.5-5.0); BILIRUBIN,TOTAL 0.3 mg/dL (0.0-1.0); CALCIUM 8.4 mg/dL (8.4-10.2); CREATININE, serum 1.96 (0.66-1.25); POTASSIUM 3.9 mmol/L (3.4-5.0); TOTAL PROTEIN 6.7 gm/dL (6.4-8.2)
[2021-06-30 07:52] LABS: BASO % 0.2 % (0.0-2.0); EOS # 0.4 (0.0-0.7); EOS % 4.1 % (0-4.0); GRAN # 6.7 (1.4-6.5); LYMPH # 1.7 (1.2-3.4); LYMPH % 17.8 % (20.0-51.0); MEAN CELL VOLUME 95 fl (80.0-100.0); MEAN CORPUSCULAR HGB CONC 32 g/dl (33.0-37.0); MEAN PLATELET VOLUME 9.7 fl (7.4-10.4); MONO # 0.7 (0.1-0.6); MONO % 7.5 % (1.7-9.3); PLATELET COUNT 289 K/mm3 (130-400); RED BLOOD COUNT 2.25 M/mm3 (4.20-5.60); REDCELL DISTRIBUTION WIDTH-CV 15.1 % (11.5-14.5)
[2021-06-30 08:37] LABS: HEMATOCRIT 21.3 % (42.0-52.0); HEMOGLOBIN 6.8 g/dl (13.5-18.0); MEAN CORPUSCULAR HEMOGLOBIN 30 pg (27.0-31.0)
--- NOTE | 2021-06-30 17:36 | NUR ---
PT PLEASANT, AOX4, REPORTS PAIN IN HIS RLE, GABAPENTIN GIVEN, VITALS TAKEN, MEDICATIONS GIVEN, NO OTHER NEEDS
[2021-06-30 18:39] LABS: HEMATOCRIT 24.4 % (42.0-52.0)
--- NOTE | 2021-06-30 20:30 | NUR ---
Initial shift assessment done- states pain to right foot 4/10-more tingling- will take a ultram at this time, Tele on, states loose stools have been less frequent,about 4-5 a day-- states will have a sandwich for a snack tonight-no other requests. VSS
[2021-07-01 03:09] VITALS: BP 168/72; PULSE 68; TEMP 98.3
--- NOTE | 2021-07-01 05:16 | NUR ---
No changes-only sleeps for a few hours due to all the antibiotics etc during the night- Tele on, states did eat the sandwich last night but immediately had to get up to BSC , had loose liquid stool. tele on.
[2021-07-01 07:22] LABS: MEAN CELL VOLUME 94 fl (80.0-100.0); MEAN CORPUSCULAR HGB CONC 31 g/dl (33.0-37.0); MEAN PLATELET VOLUME 9.5 fl (7.4-10.4); PLATELET COUNT 321 K/mm3 (130-400); REDCELL DISTRIBUTION WIDTH-CV 15.9 % (11.5-14.5)
[2021-07-01 07:28] LABS: HEMATOCRIT 24.3 % (42.0-52.0); HEMOGLOBIN 7.6 g/dl (13.5-18.0); MEAN CORPUSCULAR HEMOGLOBIN 29 pg (27.0-31.0)
[2021-07-01 07:35] LABS: CALCIUM 8.3 mg/dL (8.4-10.2); CREATININE, serum 1.64 (0.66-1.25)
[2021-07-01 07:37] VITALS: BP 166/87; PULSE 85; TEMP 98.2
--- NOTE | 2021-07-01 09:59 | NUR ---
PT PLEASANT, SLEEPING AT TIME OF ENTRY, ASSESSMENT PERFORMED, VITALS REVIEWED, NO OTHER NEED
[2021-07-01 12:00] VITALS: BP 173/72; PULSE 87; TEMP 98.9
--- NOTE | 2021-07-01 13:00 | NUR ---
CENTRAL LINE REMOVED. HELD PRESSURE FOR 10MIN, EDUCATED PT ON RESTRICTIONS AND LIMITATIONS FOR 24 HOURS. NO OTHER NEEDS
[2021-07-01] MEDS ORDERED: VERAPAMIL120 MG/TA1 PO (15:17)
--- NOTE | 2021-07-01 15:58 | NUR ---
DISCHARGE EDUCATION PROVIDED, EDUCATED ON NEW MEDICATION, EDUCATED ON NEED TO MAKE FOLLOW UP APPT'S. PT AOX4, NO OTHER NEEDS
== END 2021-07-01 15:30 | disposition home or self-care (01) | DRG 871 ==
LOC: COL.ER 20:24 → MEDICAL 22:55 → COL.ER 22:55 → MEDICAL 06-27 06:38
PROVIDERS: Emergency Medicine; Physician Assistant; Student in an Organized Health Care Education/Training Program; Surgery; ADMIT Internal Medicine
PROC: 05H633Z Insertion of Infusion Device into Left Subclavian Vein, Percutaneous Approach (ICD-10-PCS; principal; 2021-06-28 17:30)
DX: A41.9 Sepsis, unspecified organism (principal); J96.01 Acute respiratory failure with hypoxia; M86.8X7 Other osteomyelitis, ankle and foot; N17.9 Acute kidney failure, unspecified; E11.40 Type 2 diabetes mellitus with diabetic neuropathy, unspecified; E78.5 Hyperlipidemia, unspecified; Z20.822 Contact with and (suspected) exposure to COVID-19; E11.69 Type 2 diabetes mellitus with other specified complication; G47.33 Obstructive sleep apnea (adult) (pediatric); D50.0 Iron deficiency anemia secondary to blood loss (chronic); E11.51 Type 2 diabetes mellitus with diabetic peripheral angiopathy without gangrene; N18.9 Chronic kidney disease, unspecified; E11.22 Type 2 diabetes mellitus with diabetic chronic kidney disease; Z79.82 Long term (current) use of aspirin; Z89.512 Acquired absence of left leg below knee; Z79.4 Long term (current) use of insulin
CPT/HCPCS: 99223-AI; 99232-AI; 99233-AI; 99239; A9284; C1751; J0360; J1644; J1815; J1940; J2543; J3370; J7040; J7050; P9016; Q9967

== ENCOUNTER → 2021-07-30 | Outpatient (CLI) | payer MEDICARE, MEDICAID ==
[~2021-07-30] MED LIST changes: +COLESTID 1GM1 G PO; +NATURAL POTASS595 MG PO; +VERAPAMIL120 MG/TA1 PO
[2021-07-30 16:49] LABS: BASO # 0.1 K/mm3 (0.0-0.2); BASO % 0.7 % (0.0-2.0); EOS # 0.3 K/mm3 (0.0-0.7); EOS % 4.3 % (0-4.0); GRAN # 4.4 K/mm3 (1.4-6.5); GRAN % 57.9 % (42.2-75.2); LYMPH # 2.3 K/mm3 (1.2-3.4); LYMPH % 30.1 % (20.0-51.0); MEAN CELL VOLUME 94 fl (80.0-100.0); MEAN CORPUSCULAR HGB CONC 31 g/dl (33.0-37.0); MONO # 0.5 K/mm3 (0.1-0.6); MONO % 6.7 % (1.7-9.3); PLATELET COUNT 264 K/mm3 (130-400); RED BLOOD COUNT 3.28 M/mm3 (4.20-5.60); REDCELL DISTRIBUTION WIDTH-CV 15.9 % (11.5-14.5)
[2021-07-30 16:52] LABS: HEMATOCRIT 30.7 % (42.0-52.0); HEMOGLOBIN 9.6 g/dl (13.5-18.0); MEAN CORPUSCULAR HEMOGLOBIN 29 pg (27.0-31.0)
[2021-07-30 17:04] LABS: ALBUMIN 3.1 gm/dL (3.5-5.0); BILIRUBIN,TOTAL 0.2 mg/dL (0.2-1.2); CALCIUM 9.1 mg/dL (8.4-10.2); CREATININE, serum 1.2 mg/dL (0.72-1.25); POTASSIUM 4.7 mmol/L (3.5-4.5)
[2021-07-30 17:26] LABS: ERYTHROCYTE SEDIMENTATION RATE 111 mm/hr (0-15)
[2021-07-30 17:27] LABS: C-REACTIVE PROTEIN 1.6 mg/dL (0.00-0.50)
== END ==
LOC: ZCOL.LAB 16:30
PROVIDERS: Nurse Practitioner
DX: A41.50 Gram-negative sepsis, unspecified (principal)

== ENCOUNTER → 2021-08-06 | Outpatient (CLI) | payer MEDICARE, MEDICAID ==
[2021-08-06 17:28] LABS: BASO # 0.1 K/mm3 (0.0-0.2); BASO % 0.8 % (0.0-2.0); EOS # 0.8 K/mm3 (0.0-0.7); EOS % 10.7 % (0-4.0); GRAN # 3.6 K/mm3 (1.4-6.5); GRAN % 45.2 % (42.2-75.2); HEMOGLOBIN 10.7 g/dl (13.5-18.0); LYMPH # 2.9 K/mm3 (1.2-3.4); LYMPH % 36.2 % (20.0-51.0); MEAN CELL VOLUME 92 fl (80.0-100.0); MEAN CORPUSCULAR HEMOGLOBIN 29 pg (27.0-31.0); MEAN CORPUSCULAR HGB CONC 32 g/dl (33.0-37.0); MEAN PLATELET VOLUME 9.5 fl (7.4-10.4); MONO # 0.6 K/mm3 (0.1-0.6); PLATELET COUNT 222 K/mm3 (130-400); RED BLOOD COUNT 3.65 M/mm3 (4.20-5.60)
[2021-08-06 17:30] LABS: HEMATOCRIT 33.4 % (42.0-52.0)
[2021-08-06 17:37] LABS: ALBUMIN 3.3 gm/dL (3.5-5.0); BILIRUBIN,TOTAL 0.2 mg/dL (0.2-1.2); C-REACTIVE PROTEIN 0.9 mg/dL (0.00-0.50); CREATININE, serum 1.47 mg/dL (0.72-1.25); POTASSIUM 4.9 mmol/L (3.5-4.5); TOTAL PROTEIN 7.3 gm/dL (6.2-8.1)
== END ==
LOC: ZCOL.LAB 16:53
PROVIDERS: Internal Medicine Infectious Disease
DX: R78.81 Bacteremia (principal)

== ENCOUNTER → 2021-08-13 | Outpatient (CLI) | payer MEDICARE, MEDICAID ==
[2021-08-13 18:44] LABS: BASO # 0.1 K/mm3 (0.0-0.2); BASO % 0.9 % (0.0-2.0); EOS # 0.9 K/mm3 (0.0-0.7); EOS % 12.5 % (0-4.0); GRAN # 3.1 K/mm3 (1.4-6.5); GRAN % 44.7 % (42.2-75.2); HEMOGLOBIN 10.1 g/dl (13.5-18.0); LYMPH # 2.4 K/mm3 (1.2-3.4); MEAN CELL VOLUME 93 fl (80.0-100.0); MEAN CORPUSCULAR HEMOGLOBIN 30 pg (27.0-31.0); MEAN CORPUSCULAR HGB CONC 32 g/dl (33.0-37.0); MEAN PLATELET VOLUME 9.7 fl (7.4-10.4); MONO # 0.5 K/mm3 (0.1-0.6); MONO % 6.5 % (1.7-9.3); PLATELET COUNT 251 K/mm3 (130-400); RED BLOOD COUNT 3.42 M/mm3 (4.20-5.60); REDCELL DISTRIBUTION WIDTH-CV 15.9 % (11.5-14.5)
[2021-08-13 18:48] LABS: HEMATOCRIT 31.8 % (42.0-52.0)
[2021-08-13 19:04] LABS: ALBUMIN 3.1 gm/dL (3.5-5.0); BILIRUBIN,TOTAL 0.2 mg/dL (0.2-1.2); C-REACTIVE PROTEIN 1.19 mg/dL (0.00-0.50); CREATININE, serum 1.42 mg/dL (0.72-1.25); TOTAL PROTEIN 7.1 gm/dL (6.2-8.1)
[2021-08-13 19:19] LABS: POTASSIUM 6.2 mmol/L (3.5-4.5)
== END ==
LOC: ZCOL.LAB 13:27
PROVIDERS: Internal Medicine Infectious Disease
DX: R78.81 Bacteremia (principal)

== ENCOUNTER → 2021-08-20 | Outpatient (CLI) | payer MEDICARE, MEDICAID ==
[2021-08-20 17:59] LABS: BILIRUBIN,TOTAL 0.2 mg/dL (0.2-1.2); CALCIUM 8.9 mg/dL (8.4-10.2); CREATININE, serum 1.55 mg/dL (0.72-1.25); TOTAL PROTEIN 7.4 gm/dL (6.2-8.1)
== END ==
LOC: ZCOL.LAB 16:52
PROVIDERS: Internal Medicine
DX: R78.81 Bacteremia (principal)

== ENCOUNTER → 2021-09-20 | Outpatient (CLI) | payer MEDICARE, MEDICAID ==
[2021-09-20 11:13] LABS: BASO % 0.4 % (0.0-2.0); EOS # 0.1 K/mm3 (0.0-0.7); EOS % 1.3 % (0-4.0); GRAN # 6.5 K/mm3 (1.4-6.5); GRAN % 64.4 % (42.2-75.2); LYMPH # 2.5 K/mm3 (1.2-3.4); LYMPH % 24.6 % (20.0-51.0); MEAN CELL VOLUME 88 fl (80.0-100.0); MEAN CORPUSCULAR HGB CONC 34 g/dl (33.0-37.0); MEAN PLATELET VOLUME 9.7 fl (7.4-10.4); MONO # 0.9 K/mm3 (0.1-0.6); PLATELET COUNT 205 K/mm3 (130-400); RED BLOOD COUNT 3.03 M/mm3 (4.20-5.60); REDCELL DISTRIBUTION WIDTH-CV 14.8 % (11.5-14.5)
[2021-09-20 11:17] LABS: HEMATOCRIT 26.7 % (42.0-52.0); HEMOGLOBIN 9.1 g/dl (13.5-18.0); MEAN CORPUSCULAR HEMOGLOBIN 30 pg (27.0-31.0)
[2021-09-20 11:34] LABS: ALBUMIN 2.7 gm/dL (3.5-5.0); BILIRUBIN,TOTAL 0.2 mg/dL (0.2-1.2); CREATININE, serum 1.78 mg/dL (0.72-1.25); POTASSIUM 4.6 mmol/L (3.5-4.5)
== END ==
LOC: COL.LAB 10:27
PROVIDERS: Internal Medicine
DX: I25.10 Atherosclerotic heart disease of native coronary artery without angina pectoris (principal)

== ENCOUNTER 2021-12-17 13:51 | Inpatient (IN) | payer MEDICARE, MEDICAID ==
[~2021-12-17] VITALS: Ht 172.7 cm; Wt 102.4 kg
[2021-12-17 14:47] LABS: ARTERIAL BLD GAS O2 SATURATION 95.7 % (92-100); ARTERIAL BLD GAS TCO2 CT 24.2; ARTERIAL BLOOD GAS BASE EXCESS -0.8 (-2-2); ARTERIAL BLOOD GAS HCO3 23.1 meq/L (22-26); ARTERIAL BLOOD GAS PCO2 35.5 mmHg (35-45); ARTERIAL BLOOD GAS pH 7.43 (7.35-7.45)
[2021-12-17 15:16] LABS: BASO % 0.4 % (0.0-2.0); EOS # 0.2 K/mm3 (0.0-0.7); EOS % 1.8 % (0.0-4.0); GRAN # 7.8 K/mm3 (1.4-6.5); LYMPH % 18.7 % (20.0-51.0); MEAN CELL VOLUME 94 fl (80.0-100.0); MEAN CORPUSCULAR HGB CONC 32 g/dl (33.0-37.0); MEAN PLATELET VOLUME 9.3 fl (7.4-10.4); MONO # 0.5 K/mm3 (0.1-0.6); MONO % 4.8 % (1.7-9.3); PLATELET COUNT 262 K/mm3 (130-400); RED BLOOD COUNT 3.11 M/mm3 (4.20-5.60)
[2021-12-17 15:18] LABS: HEMATOCRIT 29.1 % (42.0-52.0); HEMOGLOBIN 9.3 g/dl (13.5-18.0); MEAN CORPUSCULAR HEMOGLOBIN 30 pg (27-31)
[2021-12-17 15:33] LABS: ALBUMIN 2.6 gm/dL (3.5-5.0); BILIRUBIN,TOTAL 0.2 mg/dL (0.2-1.2); C-REACTIVE PROTEIN 7.08 mg/dL (0.00-0.50); CALCIUM 9.1 mg/dL (8.4-10.2); CREATININE, serum 1.67 mg/dL (0.72-1.25); POTASSIUM 5.1 mmol/L (3.5-4.5); TOTAL PROTEIN 6.7 gm/dL (6.2-8.1)
[2021-12-17 15:59] LABS: COLLECTION METHOD CLEAN CATCH
[2021-12-17 16:05] LABS: PH 5 (5-8); SQUAMOUS EPITHELIAL 0-2 /hpf (0-10); URINE APPEARANCE Hazy (CLEAR/HAZY); URINE BACTERIA None Seen /hpf (NONE SEEN); URINE BILIRUBIN Negative (NEGATIVE); URINE BLOOD 2+ (NEGATIVE); URINE COLOR Yellow (YELLOW); URINE GLUCOSE 1+ (NEGATIVE); URINE KETONE Negative (NEGATIVE); URINE LEUKOCYTE ESTERASE Negative (NEGATIVE); URINE NITRATE Negative (NEGATIVE); URINE PROTEIN(semi-quant) 3+ (NEGATIVE); URINE UROBILINOGEN Negative (NEGATIVE)
--- NOTE | 2021-12-17 16:06 | NUR ---
workers compensation claims adjuster met with patient and spouse. Patient states he had a completed sleep study at this hospital in 2020 and has yet to receive a c pap from [facility]. Worker advised that patient could change home medical companies and that social work staff can assist with this during patient's hospital stay. Patient is being admitted to the hospital.
--- NOTE | 2021-12-17 17:50 | NUR ---
Patient transferred from ED. Patient is a/o x 4 but falls asleep quickly. He is easily aroused when spoken to. He denies any pain. PICC present to right upper arm; patent; caps changed upon admission to unit. He denies any pain. He has approx 16 sutures to his right foot. Patient oriented to exam room. Call light is within his reach
[2021-12-17] MEDS ORDERED: COREG 25MG25 MG/TAB PO (18:02)
[2021-12-17] MEDS ORDERED: NORVASC 10MG10 MG PO (18:02)
[2021-12-17] MEDS ORDERED: CUBICIN 500MG500 MG IV (18:03)
[2021-12-17] MEDS ORDERED: ZESTRIL 10MG10 MG PO (18:06)
[2021-12-17] MEDS ORDERED: LEVEMIR100 U/ML SQ (18:06)
[2021-12-17] MEDS ORDERED: TYLENOL 500MG500 MG PO (18:07)
[2021-12-17] MEDS ORDERED: ZYRTEC 10MG10 MG PO (18:09)
[2021-12-17] MEDS ORDERED: COLESTID 1GM1 G PO (18:11)
[2021-12-17] MEDS ORDERED: KLONOPIN 1MG1 MG PO (18:11)
[2021-12-17] MEDS ORDERED: MULTI VITAMINS1 TAB PO (18:14)
[2021-12-17] MEDS ORDERED: VITAMIN D 50,1.25 MG PO (18:15)
[2021-12-17] MEDS ORDERED: INVANZ INJ1 G/VIAL IV (18:27)
[2021-12-17 18:58] VITALS: BP 172/86; PULSE 76; TEMP 98.4
--- NOTE | 2021-12-17 19:26 | NUR ---
Spoke to patient significant other. Med rec was completed with her assistance over the phone. List provided by her & was left in Er. Spoke to nurse in ER to recieve list. Patient was not able to assist in med rec completion. He fall asleep easy.
--- NOTE | 2021-12-17 20:00 | NUR ---
Bedside shift report received, assumed care for rn night. Assessment complete. A&Ox3 but very drowsy falling asleep during assessment. 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 Right foot with amputated toes-sutures intact. Dressing applied per patients request using 4x4s, kerlix and rigo bandage. PICC to right upper arm flushes well with good blood return. Order clarification on antibiotic orders/accuchecks/insulin orders with SORIN Gunter. Plan of care discussed for this shift include meds/calling for questions/concerns. Verbalizes understanding/denies needs. Call light in reach. Will monitor.
[2021-12-17 20:25] VITALS: BP 154/81; PULSE 79; TEMP 98.5
[2021-12-18] VITALS (8 sets, daily range): BP systolic 133–182; BP diastolic 65–89; PULSE 63–87; TEMP 98–98.5
--- NOTE | 2021-12-18 | NUR ---
Called with c/o pain to right foot. Tylenol given per dr order. Will monitor.
--- NOTE | 2021-12-18 02:41 | NUR ---
Called with c/o pain to right foot and headache. Has already received tylenol. SORIN Gunter notified with current blood pressure also as it is slightly elevated. New orders received and initiated.
--- NOTE | 2021-12-18 03:25 | NUR ---
This nurse to room to give new order of tramadol for headache/right foot pain. Patient resting eyes closed with audible snore. Patient has been very difficult to keep awake during conversation. Will hold on giving medication until patient is more awake.
--- NOTE | 2021-12-18 04:38 | NUR ---
SORIN Gunter notified of blood pressure slowly increasing. Currently 170s/60s.
[2021-12-18 06:43] LABS: BASO % 0.3 % (0.0-2.0); EOS # 0.3 K/mm3 (0.0-0.7); EOS % 3.6 % (0.0-4.0); GRAN # 5.6 K/mm3 (1.4-6.5); GRAN % 64.8 % (42.2-75.2); LYMPH # 2.1 K/mm3 (1.2-3.4); LYMPH % 24.5 % (20.0-51.0); MEAN CELL VOLUME 94 fl (80.0-100.0); MEAN CORPUSCULAR HGB CONC 32 g/dl (33.0-37.0); MEAN PLATELET VOLUME 9.3 fl (7.4-10.4); MONO # 0.6 K/mm3 (0.1-0.6); MONO % 6.6 % (1.7-9.3); PLATELET COUNT 270 K/mm3 (130-400); RED BLOOD COUNT 3.09 M/mm3 (4.20-5.60); REDCELL DISTRIBUTION WIDTH-CV 13.8 % (11.5-14.5)
[2021-12-18 06:47] LABS: HEMATOCRIT 28.9 % (42.0-52.0); HEMOGLOBIN 9.3 g/dl (13.5-18.0); MEAN CORPUSCULAR HEMOGLOBIN 30 pg (27-31)
[2021-12-18 07:06] LABS: ALBUMIN 2.5 gm/dL (3.5-5.0); CALCIUM 9.1 mg/dL (8.4-10.2); CREATININE, serum 1.43 mg/dL (0.72-1.25); MAGNESIUM 1.9 mg/dL (1.6-2.6); PHOSPHOROUS 4.3 mg/dL (2.3-4.7)
--- NOTE | 2021-12-18 11:02 | NUR ---
Shift assessment complete.LOX x4 pt appears drowsy.Changed rigo wrap on R.foot.Minimal serosangineous drainage noted on old dressing.Kerlix and rigo wrap reapplied.Slight redness around incision.Pt c/o throbbing pain in head rated 3/10.Pt resting in dark room with call light present.
--- NOTE | 2021-12-18 11:06 | NUR ---
EZEQUIEL WITH VASCULAR ACCESS NOTIFIED OF PT ADMITTED WITH PICC LINE TO RIGHT UPPER ARM. DRESSING INTACT WITH STAT LOCK BUT NO BIOPATCH.
--- NOTE | 2021-12-18 12:30 | NUR ---
Patient admitted with PICC. Placed 2weeks ago at a hospital in [place]. Cares are being done by [facility] from [place]. PICC dressing intact with no CHG disk present. Explained to Bee importance of disk. sterile dressing change done.
--- NOTE | 2021-12-18 15:26 | NUR ---
Agricultural Aircraft Pilot met with patient to discuss discharge planning. Patient states he lives in [place] with his caregiver, Bee (ph#[phone]) and sees Dr. Trivedi for primary care. Patient obtains medications from [facility] with no difficulties and has a walker, cane, and wheelchair at home. Patient reports independence with ADLS. Patient does not have Advance Directives but may be interested in completing DPOA-HC later on today. Patient states he has been working on obtaining a CPAP, however [facility] does not have any in stock. Patient is agreeable to having one ordered at [facility]. SW contacted [facility] and was advised due to national recalls, they are back ordered on CPAP machines. [facility] advised they received their order from Dr. Trivedi's office. ARON contacted Dr. Trivedi's office and left RN a message to have order sent to [facility]. Discharge Plan: Home
--- NOTE | 2021-12-18 20:30 | NUR ---
Bedside shift report received, assumed care for shift supervisor film processing. Assessment complete. A&Ox3 but very drowsy-falling asleep during assessment several times. Denies pain/nausea/shortness of breath. VS remain stable-slightly elevated blood pressure. PICC to right upper arm flushes without difficulty-good blood return. Noted left eye is red and appears irritated. States he still has a dull headache but its better than it was. Denies need for intervention. Dressing to right foot CDI-rigo/bulky white. Plan of care discussed for this shift to include meds/calling for questions/concerns. Verbalizes understanding. Call light in reach/bed alarm on. Will monitor.
--- NOTE | 2021-12-18 23:45 | NUR ---
C/O pain to head-behind left eye-rating pain 4/10. Tylenol given per dr order.
[2021-12-19 03:51] VITALS: BP 142/65; PULSE 66; TEMP 98.5
--- NOTE | 2021-12-19 05:03 | NUR ---
Rested most of shift. Is a very hard sleeper and will fall asleep during assessment/questions. Denied nausea/shortness of breath. VS remained stable. PICC to right upper arm flushes well-AM labs drawn without difficulty. Dressing to right foot-rigo/bulky white-remains CDI. Has not had any more loose stools this shift. Denies current needs. Call light in reach. Will monitor.
--- NOTE | 2021-12-19 05:53 | NUR ---
C/O headache-rating pain 7/10 on pain scale-described as constant throbbing. Tramadol given per order.
[2021-12-19 06:31] LABS: BASO % 0.5 % (0.0-2.0); EOS # 0.3 K/mm3 (0.0-0.7); EOS % 3.8 % (0.0-4.0); GRAN # 3.3 K/mm3 (1.4-6.5); GRAN % 51.3 % (42.2-75.2); LYMPH # 2.4 K/mm3 (1.2-3.4); LYMPH % 36.6 % (20.0-51.0); MEAN CELL VOLUME 93 fl (80.0-100.0); MEAN CORPUSCULAR HGB CONC 32 g/dl (33.0-37.0); MEAN PLATELET VOLUME 9.3 fl (7.4-10.4); MONO # 0.5 K/mm3 (0.1-0.6); MONO % 7.5 % (1.7-9.3); PLATELET COUNT 251 K/mm3 (130-400); RED BLOOD COUNT 3.09 M/mm3 (4.20-5.60); REDCELL DISTRIBUTION WIDTH-CV 13.7 % (11.5-14.5)
[2021-12-19 06:39] LABS: HEMATOCRIT 28.8 % (42.0-52.0); HEMOGLOBIN 9.2 g/dl (13.5-18.0); MEAN CORPUSCULAR HEMOGLOBIN 30 pg (27-31)
[2021-12-19 06:43] LABS: ALBUMIN 2.5 gm/dL (3.5-5.0); CALCIUM 8.8 mg/dL (8.4-10.2); CREATININE, serum 1.65 mg/dL (0.72-1.25); MAGNESIUM 1.9 mg/dL (1.6-2.6)
[2021-12-19 07:00] VITALS: BP 135/77; PULSE 70; TEMP 98.6
--- NOTE | 2021-12-19 10:23 | NUR ---
Shift assessment complete.LOX X4 but pt appears drowsy.PICC line intact w/no signs of phlebitis or edema.Changed rigo wrap/kerlix on right foot.Minimal serosangineous drainage noted on the old dressing.pt c/o throbbing pain behind left eye rated 4/10.Eye drops instilled and pain slightly relieved.pt completed 100% of meals.
[2021-12-19 10:48] VITALS: BP 124/67; PULSE 82; TEMP 98.6
--- NOTE | 2021-12-19 10:57 | NUR ---
First visit from the search engine marketing strategist. No needs right now.
--- NOTE | 2021-12-19 15:05 | NUR ---
Instructor Dramatic Arts attempted to meet with patient to complete DPOA-HC, however he advised he wanted to rest. ARON contacted patient's caregiver, Bee who advised she currently lives with patient but is moving to [place] soon. Bee states she is a paid caregiver for patient through [employer]. Bee advised she provides 34 hours of paid supports a week for patient. Patient is currently receivng IV antibiotics which he administers at home. [facility] is the infusion company. Bee assists patient with this M-F and patient has two different antibiotics he has do administer once daily. Bee did advise she feels patient has more needs than she can provide for. Patient also has services through [facility]. Bee advised patient has two children: Willis (ph#[phone]) and Jo-Ann. ARON contacted [facility] and they advised patient has PT/OT and Nursing through their agency. ARON attempted to contact Dr. Trivedi's RN to assist with sending cpap order to [facility]. ARON was advised RN is out of the office today. ARON left message. Discharge Plan: Home with [facility] and [employer]
[2021-12-19 15:26] VITALS: BP 145/72; PULSE 72; TEMP 98.4
[2021-12-19 20:15] VITALS: BP 144/76; PULSE 74; TEMP 98.1
--- NOTE | 2021-12-19 23:39 | NUR ---
PATIENT DOING WELL THIS SHIFT. ALERT AND ORIENTED. STATES HE IS HAVING NEUROPATHY PAIN AND PRN TYLENOL AND GABAPENTIN GIVEN WITH [facility]. EYE DROPS GIVEN 10 MINUTES APART PER ORDER. PICC TO R UPPER ARM PATENT AND FLUSHED WITH GOOD BLOOD RETURN. DENIES ANY FURTHER NEEDS. RESTING COMFORTABLY IN BED.
[2021-12-19 23:44] VITALS: BP 119/80; PULSE 67; TEMP 98
[2021-12-20 03:52] VITALS: BP 143/88; PULSE 66; TEMP 98.3
[2021-12-20 06:13] LABS: BASO # 0.1 K/mm3 (0.0-0.2); BASO % 0.9 % (0.0-2.0); EOS # 0.3 K/mm3 (0.0-0.7); GRAN # 2.9 K/mm3 (1.4-6.5); GRAN % 45.4 % (42.2-75.2); LYMPH # 2.5 K/mm3 (1.2-3.4); MEAN CELL VOLUME 91 fl (80.0-100.0); MEAN CORPUSCULAR HGB CONC 33 g/dl (33.0-37.0); MEAN PLATELET VOLUME 9.4 fl (7.4-10.4); MONO # 0.5 K/mm3 (0.1-0.6); MONO % 8.2 % (1.7-9.3); PLATELET COUNT 296 K/mm3 (130-400); RED BLOOD COUNT 3.02 M/mm3 (4.20-5.60); REDCELL DISTRIBUTION WIDTH-CV 13.5 % (11.5-14.5)
[2021-12-20 06:14] LABS: HEMATOCRIT 27.5 % (42.0-52.0); MEAN CORPUSCULAR HEMOGLOBIN 30 pg (27-31)
[2021-12-20 06:26] LABS: ALBUMIN 2.7 gm/dL (3.5-5.0); CALCIUM 9.1 mg/dL (8.4-10.2); CREATININE, serum 1.72 mg/dL (0.72-1.25); MAGNESIUM 2.2 mg/dL (1.6-2.6); POTASSIUM 4.9 mmol/L (3.5-4.5)
[2021-12-20 07:28] VITALS: BP 129/73; PULSE 78; TEMP 98
--- NOTE | 2021-12-20 09:17 | NUR ---
Pt sitting up in bed, helped get breakfast set up for him. Pt having no complaints of pain, morning medications given. Will return once pt is done eating to complete assessment. Pt denies any needs, will continue to monitor, call light within reach
--- NOTE | 2021-12-20 10:20 | NUR ---
Pt resting in bed at this time. He does fall asleep during conversation and can hardly keep his eyes open. Pt reports over all feeling fine. Dr Kaur in to see pt, discussed plan of care with pt. Pt did verbalize understanding and was able to repeat plan but then fell back asleep. Eye drops given. Pt denies any needs, will continue to monitor
[2021-12-20 11:55] VITALS: BP 120/69; PULSE 79; TEMP 98.3
--- NOTE | 2021-12-20 14:45 | NUR ---
PT resting with his eyes closed, even non labored breathing
[2021-12-20 16:17] VITALS: BP 113/77; PULSE 70; TEMP 98.1
[2021-12-20 19:29] VITALS: BP 103/62; PULSE 74; TEMP 98.3
--- NOTE | 2021-12-20 20:48 | NUR ---
PT SLEEPING. VERY DROWSY DURING MEDICATION TIME. DENIES PAIN. CALL LIGHT IN REACH. VELASQUEZ WRAP TO RT FOOT CDI.
[2021-12-20 23:36] VITALS: BP 130/72; PULSE 72; TEMP 97.8
[2021-12-21 04:12] VITALS: BP 130/67; PULSE 69; TEMP 97.9
[2021-12-21 06:53] LABS: BASO % 0.6 % (0.0-2.0); EOS # 0.3 K/mm3 (0.0-0.7); GRAN # 3.2 K/mm3 (1.4-6.5); GRAN % 48.5 % (42.2-75.2); LYMPH # 2.6 K/mm3 (1.2-3.4); LYMPH % 39.1 % (20.0-51.0); MEAN CELL VOLUME 94 fl (80.0-100.0); MEAN CORPUSCULAR HGB CONC 32 g/dl (33.0-37.0); MEAN PLATELET VOLUME 9.3 fl (7.4-10.4); MONO # 0.5 K/mm3 (0.1-0.6); MONO % 7.6 % (1.7-9.3); PLATELET COUNT 265 K/mm3 (130-400); RED BLOOD COUNT 3.16 M/mm3 (4.20-5.60); REDCELL DISTRIBUTION WIDTH-CV 13.6 % (11.5-14.5)
[2021-12-21 06:59] LABS: HEMATOCRIT 29.6 % (42.0-52.0); HEMOGLOBIN 9.4 g/dl (13.5-18.0); MEAN CORPUSCULAR HEMOGLOBIN 30 pg (27-31)
[2021-12-21 07:23] VITALS: BP 131/69; PULSE 72; TEMP 97.6
[2021-12-21 07:23] LABS: ALBUMIN 2.6 gm/dL (3.5-5.0); CALCIUM 8.8 mg/dL (8.4-10.2); CREATININE, serum 1.82 mg/dL (0.72-1.25); MAGNESIUM 2.2 mg/dL (1.6-2.6); PHOSPHOROUS 4.7 mg/dL (2.3-4.7); POTASSIUM 4.5 mmol/L (3.5-4.5)
[2021-12-21] MEDS ORDERED: BETIMOL 0.5% OPH5 ML OP (07:53)
[2021-12-21] MEDS ORDERED: ATROPINE 2 ML2 ML OP (07:54)
[2021-12-21] MEDS ORDERED: PREDFORTE5ML OP (07:54)
--- NOTE | 2021-12-21 08:56 | NUR ---
PT RESTING IN BED. MORNING MEDICATIONS GIVEN. SHIFT ASSESSMENT COMPLETED. PICC LINE FLUSHES AND HAS GOOD BLOOD RETURN. DENIES ANY PAIN OR NEEDS AT THIS TIME. RLE WRAPPED WITH VELASQUEZ WRAP. PT EAGER TO D/C HOME. WILL CONTINUE TO MONITOR.
--- NOTE | 2021-12-21 11:19 | NUR ---
DISCHARGE INSTRUCTIONS GIVEN, ALL QUSTIONS ANSWERED. WILL WALK PT DOWNSTAIRS.
--- NOTE | 2021-12-21 14:32 | NUR ---
Dry Cans Operator attended clinical rounds with the team and patient to discharge home today. SW met with patient to present and review IM form. Patient verbalized understanding and then provided signature. SW placed form in chart and provided copy to patient. ARON contacted [facility] and faxed discharge orders. ARON was advised they would schedule a visit for patient tomorrow. ARON contacted Dr. Trivedi's office and requested to speak with RN. ARON advised two messages have been left. ARON was connected with RN voicemail. SW left detailed message regarding patient's CPAP order. Discharge Plan: Home with Home Health and Personal Care Services
--- NOTE | 2021-12-21 14:44 | NUR ---
Crystal Grower received call back from RN at Dr. Trivedi's office. She advised she will send order to [facility] for CPAP.
== END 2021-12-21 11:26 | disposition home health service (06) | DRG 872 ==
LOC: COL.ER 13:51 → SURG 16:59
PROVIDERS: Family Medicine; ADMIT Internal Medicine
DX: A41.9 Sepsis, unspecified organism (principal); N17.9 Acute kidney failure, unspecified; M86.9 Osteomyelitis, unspecified; G47.33 Obstructive sleep apnea (adult) (pediatric); E10.51 Type 1 diabetes mellitus with diabetic peripheral angiopathy without gangrene; E78.5 Hyperlipidemia, unspecified; E10.42 Type 1 diabetes mellitus with diabetic polyneuropathy; G51.0 Bell's palsy; I12.9 Hypertensive chronic kidney disease with stage 1 through stage 4 chronic kidney disease, or unspecified chronic kidney disease; N18.9 Chronic kidney disease, unspecified; E10.22 Type 1 diabetes mellitus with diabetic chronic kidney disease; D64.9 Anemia, unspecified; F32.A Depression, unspecified; E10.69 Type 1 diabetes mellitus with other specified complication; E83.39 Other disorders of phosphorus metabolism; Z79.82 Long term (current) use of aspirin; Z86.73 Personal history of transient ischemic attack (TIA), and cerebral infarction without residual deficits
CPT/HCPCS: 99223-AI; 99231-AI; 99232-AI; 99239; A9575; J0360; J0878; J1120; J1335; J1644; J1815; J2543; J3370; J7030; J7050

== ENCOUNTER → 2022-01-07 | Outpatient (CLI) | payer MEDICARE, MEDICAID ==
[~2022-01-07] MED LIST changes: +ATROPINE 2 ML2 ML OP; +BETIMOL 0.5% OPH5 ML OP; +COREG 25MG25 MG/TAB PO; +CUBICIN 500MG500 MG IV; +INVANZ INJ1 G/VIAL IV; +KLONOPIN 1MG1 MG PO; +LEVEMIR100 U/ML SQ; +MULTI VITAMINS1 TAB PO; +NORVASC 10MG10 MG PO; +PREDFORTE5ML OP; +TYLENOL 500MG500 MG PO; +VITAMIN D 50,1.25 MG PO; +ZESTRIL 10MG10 MG PO; +ZYRTEC 10MG10 MG PO
[2022-01-07 15:28] LABS: ALBUMIN 2.8 gm/dL (3.5-5.0); BILIRUBIN,TOTAL 0.2 mg/dL (0.2-1.2); C-REACTIVE PROTEIN 0.61 mg/dL (0.00-0.50); CALCIUM 8.8 mg/dL (8.4-10.2); CREATININE, serum 1.48 mg/dL (0.72-1.25); POTASSIUM 4.1 mmol/L (3.5-4.5); TOTAL PROTEIN 6.9 gm/dL (6.2-8.1)
[2022-01-07 15:36] LABS: BASO % 0.5 % (0.0-2.0); EOS # 0.2 K/mm3 (0.0-0.7); GRAN # 2.8 K/mm3 (1.4-6.5); GRAN % 43.2 % (42.2-75.2); HEMATOCRIT 32.6 % (42.0-52.0); HEMOGLOBIN 10.8 g/dl (13.5-18.0); LYMPH % 46.2 % (20.0-51.0); MEAN CELL VOLUME 92 fl (80.0-100.0); MEAN CORPUSCULAR HEMOGLOBIN 30 pg (27-31); MEAN CORPUSCULAR HGB CONC 33 g/dl (33.0-37.0); MEAN PLATELET VOLUME 9.7 fl (7.4-10.4); MONO # 0.4 K/mm3 (0.1-0.6); MONO % 6.9 % (1.7-9.3); PLATELET COUNT 214 K/mm3 (130-400); RED BLOOD COUNT 3.55 M/mm3 (4.20-5.60)
== END ==
LOC: ZCOL.LAB 15:15
PROVIDERS: Internal Medicine Infectious Disease
DX: M86.671 Other chronic osteomyelitis, right ankle and foot (principal)

== ENCOUNTER → 2022-01-14 | Outpatient (CLI) | payer MEDICARE, MEDICAID ==
[2022-01-14 16:14] LABS: BASO % 0.5 % (0.0-2.0); EOS # 0.2 K/mm3 (0.0-0.7); EOS % 5.4 % (0.0-4.0); GRAN # 1.9 K/mm3 (1.4-6.5); GRAN % 48.4 % (42.2-75.2); HEMATOCRIT 43.7 % (42.0-52.0); HEMOGLOBIN 14.3 g/dl (13.5-18.0); LYMPH # 1.4 K/mm3 (1.2-3.4); LYMPH % 36.6 % (20.0-51.0); MEAN CELL VOLUME 91 fl (80.0-100.0); MEAN CORPUSCULAR HEMOGLOBIN 30 pg (27-31); MEAN CORPUSCULAR HGB CONC 33 g/dl (33.0-37.0); MEAN PLATELET VOLUME 10.1 fl (7.4-10.4); MONO # 0.3 K/mm3 (0.1-0.6); MONO % 8.8 % (1.7-9.3); PLATELET COUNT 160 K/mm3 (130-400); RED BLOOD COUNT 4.78 M/mm3 (4.20-5.60); REDCELL DISTRIBUTION WIDTH-CV 14.2 % (11.5-14.5)
[2022-01-14 16:21] LABS: BILIRUBIN,TOTAL 0.2 mg/dL (0.2-1.2); C-REACTIVE PROTEIN 2.86 mg/dL (0.00-0.50); CALCIUM 8.7 mg/dL (8.4-10.2); CREATININE, serum 1.56 mg/dL (0.72-1.25); POTASSIUM 4.4 mmol/L (3.5-4.5); TOTAL PROTEIN 7.4 gm/dL (6.2-8.1)
== END ==
LOC: ZCOL.LAB 15:58
PROVIDERS: Orthopaedic Surgery
DX: M86.671 Other chronic osteomyelitis, right ankle and foot (principal)

== ENCOUNTER 2022-04-26 14:35 | Emergency (ER) | payer MEDICARE, MEDICAID ==
[~2022-04-26] VITALS: Ht 172.7 cm; Wt 104.1 kg
[2022-04-26 15:35] VITALS: TEMP 97.7
[2022-04-26 16:31] LABS: BASO % 0.4 % (0.0-2.0); EOS # 0.2 K/mm3 (0.0-0.7); EOS % 3.1 % (0.0-4.0); GRAN # 4.3 K/mm3 (1.4-6.5); HEMOGLOBIN 11.4 g/dl (13.5-18.0); LYMPH # 2.4 K/mm3 (1.2-3.4); MEAN CELL VOLUME 91 fl (80.0-100.0); MEAN CORPUSCULAR HEMOGLOBIN 31 pg (27-31); MEAN CORPUSCULAR HGB CONC 34 g/dl (33.0-37.0); MEAN PLATELET VOLUME 8.7 fl (7.4-10.4); MONO # 0.5 K/mm3 (0.1-0.6); MONO % 6.2 % (1.7-9.3); PLATELET COUNT 219 K/mm3 (130-400); REDCELL DISTRIBUTION WIDTH-CV 13.2 % (11.5-14.5)
[2022-04-26 16:32] LABS: HEMATOCRIT 33.5 % (42.0-52.0)
[2022-04-26 16:50] LABS: ALBUMIN 3.4 gm/dL (3.5-5.0); BILIRUBIN,TOTAL 0.3 mg/dL (0.2-1.2); CALCIUM 9.2 mg/dL (8.4-10.2); CREATININE, serum 1.41 mg/dL (0.72-1.25); POTASSIUM 5.2 mmol/L (3.5-4.5); TOTAL PROTEIN 7.4 gm/dL (6.2-8.1)
[2022-04-26] MEDS ORDERED: OMNICEF 300MG300 MG PO (18:41)
[2022-04-26 18:57] VITALS: BP 180/105; PULSE 85
== END 2022-04-26 18:57 | disposition home or self-care (01) ==
LOC: COL.ER 14:35
PROVIDERS: Nurse Practitioner Family
DX: T23.311A Burn of third degree of right thumb (nail), initial encounter (principal); Z28.310 Unvaccinated for COVID-19; X12.XXXA Contact with other hot fluids, initial encounter